=== PATIENT | female | born 1990 | race Caucasian/White ===

== ENCOUNTER 2019-07-11 21:00 | Outpatient (CLI) | payer OTHER, SELFPAY ==
[2019-07-11 21:39] VITALS: BMI 31.2
[2019-07-11 22:28] LABS: Absolute Lymphocyte Count 1.22 X10^3/uL (0.83-4.51); Absolute Neutrophil Count 7.8 X10^3/uL (2.0-7.7); Basophil# 0.01 X10^3/uL; Basophil% 0.1 % (0-1); Eosinophil# 0.08 X10^3/uL; Eosinophils% 0.8 % (0-5); Hematocrit 32.8 % (37-47); Hemoglobin 10.9 g/dL (12.0-15.0); Lymphocyte # 1.22 X10^3/ul (4.0); Lymphocyte % 12.6 % (19-41); Mean Corp Hgb Conc 33.2 g/dL (32-36); Mean Corpuscular Hgb 29.7 pg (27.0-32.0); Mean Corpuscular Volume 89.4 fL (81-99); Mean Platelet Vol. 11.1 fl (6.2-12.0); Monocyte# 0.56 X10^3/uL; Monocyte% 5.8 % (0-10); NRBC Flagged by Analyzer 0 % (0-5); Neutrophil # 7.78 X10^3/uL (2.7-7.7); Neutrophil % 80.2 % (47-70); Platelet Count 140 K/mm3 (150-450); RBC Distribution Width CV 13.2 % (11.6-14.6); RBC Distribution Width SD 43.2 fl (35.1-43.9); Red Blood Count 3.67 M/mm3 (4.2-5.4); White Blood Count 9.7 K/mm3 (4.4-11.0)
[2019-07-11 22:47] LABS: ALB/GLOB Ratio 0.7 RATIO (0.9-2.4); AST(SGOT) 35 U/L (15-37); Alanine Aminotransfer ALT/SGPT 40 U/L (13-56); Albumin, Serum 2.8 g/dL (3.2-5.0); Alkaline Phosphatase 73 U/L (45-117); Anion Gap 9 (5-15); BUN 8 mg/dL (7-18); BUN/Creat Ratio 11.9 RATIO (10-20); Calcium,Total 8.5 mg/dL (8.5-10.1); Chloride 112 mmol/L (98-107); Creatinine, Serum 0.67 mg/dL (0.55-1.02); EST Glomerular Filtration Rate 112 mL/min (>60); Est Glom Filt Rate - Afr Amer 135 mL/min (>60); Estimated Creatinine Clearance 99.75 ml/min; Globulin 3.8 g/dL (2.2-4.2); Glucose 124 mg/dL (74-106); Potassium 3.1 mmol/L (3.5-5.1); Protein, Total 6.6 g/dL (6.4-8.2); Sodium Level 141 mmol/L (136-145)
[2019-07-11 23:09] LABS: Mucous, Urine 0 SEEN /hpf (<or=2+); Red Blood Cells-Urine 0 SEEN /hpf (0-5)
[2019-07-11 23:13] LABS: Color, Urine Yellow (Yellow); Glucose, Dipstick Normal (Normal); Ketone-Dipstick Negative (Negative); Leukocyte Esterase-Dipstick 500 /ul (Negative); Nitrite-Dipstick Negative (Negative); Occult Blood-Urine Negative /ul (Negative); Protein-Dipstick Negative (Negative); Urine Bilirubin Dipstick Negative (Negative); Urine Clarity Sl. Cloudy (Clear); Urine Urobilinogen Normal (Normal)
[2019-07-11 23:21] LABS: Squamous Epithelial Cells - UA 0-5 SEEN /hpf (5-10); White Blood Cells 10-25 SEEN /hpf (0-5)
[2019-07-11 23:22] LABS: Amorphous Sediment 1+ PHOS; Bacteria RARE /hpf (None Seen)
[2019-07-11] MEDS: Acetaminophen 500 MG Tablet 1000 MG PO (23:46)
--- NOTE | 2019-07-14 03:18 | OB.TRI.NOTE ---
- Problem List (1) Abdominal pain affecting Status: Acute History of Present Illness Date of Service: 07/11/19 Was patient seen by the physician?: Yes Reason For Visit: ABDOMINAL PAIN Final LLUVIA: 08/29/19 Gestational age: 33 Weeks and 3 Days History of Present Illness: 29-year-old G6, P1 at 33 weeks presents with upper abdominal pain rating into her right back. Patient [place] care by a hitch technician [place] of [place] and went on a car ride down to [place] and [facility] and at the end of the car ride was noting upper abdominal pain radiating into her right back. She has a history of a fibroid in that area also. Patient has been feeling good movement and denies any vaginal bleeding or loss of fluid. Patient initially declined any pain medication and then accepted Tylenol. Allergies No Known Allergies Allergy (Verified 07/11/19 23:36) Laboratory Studies: Laboratory Tests 07/11/19 07/11/19 07/11/19 Range/Units 22:50 22:15 22:15 WBC 9.7 (4.4-11.0) K/mm3 RBC 3.67 L (4.2-5.4) M/mm3 Hgb 10.9 L (12.0-15.0) g/dL Hct 32.8 L (37-47) % MCV 89.4 (81-99) fL MCH 29.7 (27.0-32.0) pg MCHC 33.2 (32-36) g/dL RDW Std Deviation 43.2 (35.1-43.9) fl RDW Coeff of Josiane 13.2 (11.6-14.6) % Plt Count 140 L (150-450) K/mm3 MPV 11.1 (6.2-12.0) fl Immature Gran % (Auto) 0.500 (0.0-0.9) % Neut % (Auto) 80.2 H (47-70) % Lymph % (Auto) 12.6 L (19-41) % [place] % (Auto) 5.8 (0-10) % Eos % (Auto) 0.8 (0-5) % Baso % (Auto) 0.1 (0-1) % Absolute Neuts (auto) 7.8 H (2.0-7.7) X10^3/uL Absolute Lymphs (auto) 1.22 (0.83-4.51) X10^3/uL Nucleated RBC % 0 (0-5) % Sodium 141 (136-145) mmol/L Potassium 3.1 L (3.5-5.1) mmol/L Chloride 112 H (98-107) mmol/L Carbon Dioxide 20.0 L (21.0-32.0) mmol/L Anion Gap 9 (5-15) BUN 8 (7-18) mg/dL Creatinine 0.67 (0.55-1.02) mg/dL Estim Creat Clear Calc 99.75 ml/min Est GFR (MDRD) Af Amer 135 (>60) mL/min Est GFR (MDRD) Non-Af 112 (>60) mL/min BUN/Creatinine Ratio 11.9 (10-20) RATIO Glucose 124 H (74-106) mg/dL Calcium 8.5 (8.5-10.1) mg/dL Total Bilirubin 0.40 (0.20-1.00) mg/dL AST 35 (15-37) U/L ALT 40 (13-56) U/L Alkaline Phosphatase 73 (45-117) U/L Total Protein 6.6 (6.4-8.2) g/dL Albumin 2.8 L (3.2-5.0) g/dL Globulin 3.8 (2.2-4.2) g/dL Albumin/Globulin Ratio 0.7 L (0.9-2.4) RATIO Urine Color Yellow (Yellow) Urine Clarity Sl. Cloudy (Clear) Urine pH 7.0 (5.0 - 8.0) Ur Specific Vanderbilt 1.010 (1.002-1.030) Urine Protein Negative (Negative) mg/dl Urine Glucose (UA) Normal (Normal) mg/dl Urine Ketones Negative (Negative) mg/dl Urine Occult Blood Negative (Negative) /ul Urine Nitrite Negative (Negative) Urine Bilirubin Negative (Negative) mg/dL Urine Urobilinogen Normal (Normal) mg/dl Ur Leukocyte Esterase 500 H (Negative) /ul Urine RBC 0 SEEN (0-5) /hpf Urine WBC 10-25 SEEN (0-5) /hpf Ur Squamous Epith Cells 0-5 SEEN (5-10) /hpf Amorphous Sediment 1+ PHOS Urine Bacteria RARE (None Seen) /hpf Urine Mucus 0 SEEN (<or=2+) /hpf Review of Systems Constitutional: Denies: Anorexia, Fever Eyes: Denies: Blurred vision Cardiovascular: Denies: Chest Pain Respiratory: Denies: Cough Gastrointestinal: Reports: Abdominal Pain Physical Exam General: Alert, Oriented x3 Cardiovascular: Regular rate Lungs: Normal air movement Abdomen: Soft, Non Tender, Gravid Extremities:: No edema NST - FHR Rate Baby A Baseline: 130 Variability:: Moderate Accelerations:: 15 x 15 Decelerations:: None NST Reactive:: Yes FHR Category:: Category I Uterine Activity:: No regular contractions Impression/Plan 29-year-old G6, P1 at 33 weeks with abdominal pain Cervix closed and labs drawn all within normal limits pain resolved with Tylenol recommend following up with regular provider if NST labor precautions and kick counts reviewed. Reviewed PE precautions also but low risk and vital signs stable. Patient declined CT of the chest. Multi Select Codes - Visit Charges Office Visit/Consults: 82888 OV L3 New
== END 2019-07-11 23:50 | disposition home or self-care (01) ==
LOC: WPOUT 21:18 → WP 21:26
PROVIDERS: PCP Family Medicine; Visit Provider Obstetrics & Gynecology
DX: O26.893 Other specified pregnancy related conditions, third trimester (principal); R10.9 Unspecified abdominal pain; Z3A.33 33 weeks gestation of pregnancy
CPT/HCPCS: 36415; 59025; 59050; 80053; 81001; 85025; 87077; 87086; 87088; 87186; 99218; G0378

== ENCOUNTER 2019-12-05 23:10 | Emergency (ER) | payer OTHER, SELFPAY ==
[2019-12-05 23:10] VITALS: BP 135/91; PULSE 67; RESP 16; TEMP 36.6; O2SAT 97
[2019-12-05 23:11] VITALS: BP 135/91; PULSE 72; RESP 16; TEMP 36.6; O2SAT 97; BMI 29.5
--- NOTE | 2019-12-05 23:30 | CT_ITS ---
HISTORY: RUQ PAIN AND NAUSEA,PREG TEST WAS NEGATIVE ADDITIONAL HISTORY: None provided. TECHNIQUE: CT images were obtained of the abdomen and pelvis with ml of 100mL Isovue-370 IV contrast. Enteric contrast was not given. A radiation dose optimization technique was used for this scan. Number of images including paperwork: [id number] COMPARISON: None FINDINGS: LOWER THORAX: No consolidation or pleural effusion. Dependent atelectasis. Left lower lobe lung nodule measuring 4.5 mm in average diameter. Consider follow-up chest CT in 12 months to assess stability of the patient is considered to be high risk for lung cancer. LIVER: No concerning focal lesion. GALLBLADDER: Distended. No radiopaque calculi. BILE DUCTS: No significant biliary dilatation. SPLEEN: Unremarkable. PANCREAS: Unremarkable. ADRENAL GLANDS: Unremarkable. KIDNEYS/URETERS: Unremarkable. BOWEL: No bowel obstruction. No significant bowel wall thickening. No localized inflammation. Mildly prominent small bowel fluid. APPENDIX: Normal. FREE FLUID: Trace free fluid. FREE AIR: None. LYMPH NODES: No pathologic appearing adenopathy. PERITONEUM, RETROPERITONEUM AND MESENTERY: Otherwise unremarkable. VASCULATURE: Unremarkable as imaged. PELVIS: Unremarkable bladder. Heterogeneous uterus with small masses compatible with fibroids. 1.7 cm left ovarian follicle. ABDOMINAL WALL: Unremarkable. OSSEOUS AND SOFT TISSUE STRUCTURES: No acute skeletal findings. Mild disc bulging at L5-S1. CT/Abdomen/Pelvis W IV Cont ONLY IMPRESSION: 1. Mildly prominent small bowel fluid, a nonspecific finding which can be seen with enteritis. 2. Heterogeneous uterus with small masses suggestive of fibroids. 3. Additional findings above. Individualized dose optimization techniques were used for this CT. at 0032 Reported and signed by: Sophia Mcclendon MD Electronically Signed: Sophia Mcclendon MD at 0:32 EDT Tel , Service support ,
--- NOTE | 2019-12-05 23:32 | ED.VISSUMM ---
- ER Visit Summary Date of Service: 12/05/19 Chief Complaint: Right upper quadrant abdominal pain History of Present Illness: The patient is a 29 F CM past medical history. No prior abdominal surgeries. Patient states she is had these type of attacks and abdominal pain since July. They have been on and off. She says it seems to be worse with fried or greasy foods. Typically the right upper quadrant. Today's episode started around 10 AM. Associated nausea. No vomiting. No diarrhea. No melena. No dysuria. No fever. Denies any dysuria. No vaginal bleeding or discharge. Last menstrual period was before her most recent she delivered September 02 vaginal delivery without complications. Physical Examination: Young female complaining of right upper quadrant dull pain. Vital signs stable afebrile. Does not look septic or toxic. H EENT exam unremarkable. Neck nontender no lymphadenopathy. Lungs clear to auscultation bilaterally. Heart regular rhythm no murmur. Abdomen soft. Tenderness right upper quadrant. No organomegaly or masses. Both lower quadrants and left upper quadrant are nontender. Normal bowel sounds. No peritoneal signs. No signs of obstruction. No hernia or masses. Positive bowel sounds. Patient moving all 4 extremities. No edema. Back nontender. Neurologically she is awake alert with no focal motor deficits. Test Results: BC white count 1.7 hemoglobin 14. No bands. Chemistries BUN, creatinine gap normal liver enzymes normal. Lipase normal at 83. Serum test negative. CAT scan abdomen pelvis with IV contrast showed fibroid uterus otherwise unremarkable normal-appearing appendix. Normal-appearing gallbladder with no gallstones. Emergency Department Course and Treatment: History and exam are consistent with possible gallbladder disease. She will be treated with IV morphine for pain, Toradol and Zofran for nausea. IV fluids. CAT scan labs are being obtained. Eulogio exam at 1:30 AM patient doing well. Abdomen benign. Pain almost resolved. She is feeling better. She and I and her significant other went over all of her tests. She will outpatient follow-up. Treatment Plan: Zofran for nausea. Tylenol and/or Motrin for pain. Follow-up with primary care physician for a right upper quadrant ultrasound for further evaluation for possible gallbladder disease. Disposition: Discharge Impression: Acute right upper quadrant abdominal pain uncertain etiology. This note was generated with Inofileation software. It may contain incorrect words, spelling, and punctuation that were not noted in review of the chart prior to signing ED Disposition - Plan for ED Patient: Referrals: Tom Ceja DO [Primary Care Provider] -
[2019-12-05] MEDS: Ketorolac 30 MG/ML Syringe IV (23:39)
[2019-12-05] MEDS: Morphine 4 MG/ML Syringe 6 MG IV (23:40)
[2019-12-05] MEDS: Ondansetron 4 MG/2 ML Vial IV (23:40)
[2019-12-05] MEDS: 0.9% Normal Saline 1,000 ML 1000 ML IV (23:42)
[2019-12-05 23:47] LABS: Internal QC Validated? YES +Cl - CLEAR BKGD; Pregnancy, Serum, hCG Quali. NEGATIVE Negative
[2019-12-05 23:54] LABS: AST(SGOT) 20 U/L (15-37); Alanine Aminotransfer ALT/SGPT 48 U/L (13-56); Albumin, Serum 4.3 g/dL (3.2-5.0); Alkaline Phosphatase 87 U/L (45-117); Anion Gap 7 (5-15); BUN 11 mg/dL (7-18); BUN/Creat Ratio 12.3 RATIO (10-20); Bilirubin, Direct 0.21 mg/dL (0.00-0.30); Calcium,Total 9.3 mg/dL (8.5-10.1); Chloride 107 mmol/L (98-107); Creatinine, Serum 0.89 mg/dL (0.55-1.02); EST Glomerular Filtration Rate 80 mL/min (>60); Est Glom Filt Rate - Afr Amer 97 mL/min (>60); Glucose 111 mg/dL (74-106); Lipase 83 U/L (73-393); Potassium 3.6 mmol/L (3.5-5.1); Protein, Total 8.3 g/dL (6.4-8.2); Sodium Level 137 mmol/L (136-145)
[2019-12-06] LABS: Absolute Lymphocyte Count 1.83 X10^3/uL (0.83-4.51); Absolute Neutrophil Count 8.9 X10^3/uL (2.0-7.7); Basophil# 0.03 X10^3/uL; Basophil% 0.3 % (0-1); Eosinophil# 0.06 X10^3/uL; Eosinophils% 0.5 % (0-5); Hematocrit 43.9 % (37-47); Hemoglobin 14.8 g/dL (12.0-15.0); Lymphocyte # 1.83 X10^3/ul (4.0); Lymphocyte % 15.6 % (19-41); Mean Corp Hgb Conc 33.7 g/dL (32-36); Mean Corpuscular Hgb 29.4 pg (27.0-32.0); Mean Corpuscular Volume 87.3 fL (81-99); Mean Platelet Vol. 11.2 fl (6.2-12.0); Monocyte# 0.83 X10^3/uL; Monocyte% 7.1 % (0-10); NRBC Flagged by Analyzer 0 % (0-5); Neutrophil # 8.85 X10^3/uL (2.7-7.7); Neutrophil % 75.4 % (47-70); Platelet Count 218 K/mm3 (150-450); RBC Distribution Width CV 13.3 % (11.6-14.6); RBC Distribution Width SD 41.1 fl (35.1-43.9); Red Blood Count 5.03 M/mm3 (4.2-5.4); White Blood Count 11.7 K/mm3 (4.4-11.0)
--- NOTE | 2019-12-06 01:43 | DCINST.ED_ITS ---
ED Disposition - Plan for ED Patient: Disposition: Home or Assisted Living Instructions: ED Abdominal Pain Unkn Cause Fem Prescriptions: Ondansetron [Zofran Odt] 4 mg PO Q8H PRN PRN #10 tab PRN Reason: Nausea Prescription Printed Referrals: Tom Ceja, [Primary Care Provider] - As soon as possible Additional Instructions: Tylenol And/or Motrin for pain. Zofran as needed for nausea. [place] diet increase slowly as tolerated. All your tests and CAT scan tonight were negative. Follow-up with Dr. Ceja to get an outpatient right upper quadrant ultrasound your gallbladder for further evaluation. No gallstones were seen tonight.
[2019-12-06 01:55] VITALS: BP 109/75; PULSE 52; RESP 16; O2SAT 99
== END 2019-12-06 02:02 | disposition home or self-care (01) ==
PROVIDERS: Emergency Provider Emergency Medicine; PCP Family Medicine
DX: R10.11 Right upper quadrant pain (principal); R11.0 Nausea; D25.9 Leiomyoma of uterus, unspecified
CPT/HCPCS: 74177; 80048; 80076; 83690; 84703; 85025; 96361; 96374; 96375; 99283; Q9967; A4216; J2405